=== PATIENT | female | born 1960 | race Caucasian/White ===

== ENCOUNTER 2018-08-30 11:12 | Outpatient (CLI) | payer OTHER, SELFPAY ==
[2018-08-30 13:04] LABS: Abs Immature Grans 0.01 k/cumm (0.0-0.09); Absolute Basophil Count 0.04 k/cumm (0.0-0.2); Absolute Eosinophil Count 0.22 k/cumm (0.0-0.7); Absolute Lymphocyte Count 2.22 k/cumm (1.2-3.4); Absolute Monocyte Count 0.72 k/cumm (0.11-0.7); Absolute Neutrophil Count 4.26 k/cumm (1.2-6.7); Basophils % 0.5; Eosinophils % 2.9; HCT 42.5 % (36.0-46.0); HGB 13.9 g/dL (12.0-15.5); Immature Grans % 0.1; Lymphocytes % 29.7; Mean Corp. HGB Concentration 32.7 g/dL (32.0-36.0); Mean Corpuscular Volume 91.8 fL (80-95); Mean Platelet Volume 11.2 fL (8.0-11.0); Monocytes % 9.6; Neutrophils % 57.2; Platelet Count 299 x1000/uL (130-400); RBC 4.63 m/cumm (4.00-5.20); RBC Distribution Width 12.8 % (11.7-14.6); White Blood Cell Count 7.47 k/cumm (4.4-10.8)
[2018-08-30 13:17] LABS: ALT 25 U/L (12-78); AST 18 U/L (15-37); Albumin 4.3 g/dL (3.4-5.0); Alkaline Phosphatase 78 U/L (46-116); Anion Gap 7.7 mmol/L (3-11); BUN 17 mg/dL (7-18); Bilirubin, Total 0.4 mg/dL (0.2-1.0); CO2 32.3 mmol/L (21.0-32.0); CREATININE 0.77 mg/dL (0.55-1.02); Calcium 9.4 mg/dL (8.5-10.1); Chloride 103 mmol/L (98-107); Cholesterol 296 mg/dL (50-200); Glucose 94 mg/dL (70-100); HDL Cholesterol 102 mg/dL (40-60); LDL CHOLESTEROL 180 mg/dL (<100); Magnesium 2.1 mg/dL (1.8-2.4); Sodium 143 mmol/L (136-145); TSH 1.84 uIU/mL (0.358-3.74); Total Protein 7.4 g/dL (6.4-8.2); Triglyceride 34 mg/dL (30-150)
[2018-08-30 13:33] LABS: FREE T4 1.04 ng/dL (0.76-1.46)
[2018-09-05 12:42] LABS: Specimen WB Whole Blood
== END 2018-08-30 11:32 ==
PROVIDERS: PCP Nurse Practitioner Family; Visit Provider Nurse Practitioner Family
DX: Z00.00 Encounter for general adult medical examination without abnormal findings (principal); R55 Syncope and collapse; Z83.49 Family history of other endocrine, nutritional and metabolic diseases
CPT/HCPCS: 36415; 80053; 80061; 83721; 81256; 83735; 84439; 84443; 85025

== ENCOUNTER 2018-09-13 02:50 | Outpatient (CLI) | payer OTHER, SELFPAY ==
--- NOTE | 2018-10-04 10:37 | ZIOP_ITS ---
ZIO PATCH REPORT DATE OF DICTATION October 04, 2018 INDICATION Syncope. ANALYSIS TIME 11 days and 12 hours. FINDINGS Predominant underlying rhythm is sinus rhythm. Average heart rate when in sinus 72 beats per minute. Minimum heart rate 44 and max heart rate 153 beats per minute when in sinus rhythm. 5 short bursts of SVT. The longest lasting 15 beats. Otherwise rare isolated atrial ectopy. Rare isolated ventricular ectopy. No nonsustained VT. No significant pauses or nusrat arrhythmias. 24 patient triggered events all correspond to sinus rhythm and occasionally to PACs. No diary entries. Reji Noonan M.D. FARTUN/afua T-10/04/2018
== END 2018-09-13 03:10 ==
PROVIDERS: PCP Nurse Practitioner Family; Visit Provider Nurse Practitioner Family
DX: R55 Syncope and collapse (principal); I47.1 Supraventricular tachycardia
CPT/HCPCS: 93225

== ENCOUNTER 2019-01-06 08:25 | Outpatient (CLI) | payer OTHER, SELFPAY ==
[2019-01-06 11:35] LABS: ALT 30 U/L (12-78); AST 22 U/L (15-37); Albumin 4.3 g/dL (3.4-5.0); Alkaline Phosphatase 79 U/L (46-116); Anion Gap 9.2 mmol/L (3-11); BUN 19 mg/dL (7-18); Bilirubin, Total 0.4 mg/dL (0.2-1.0); CO2 31.8 mmol/L (21.0-32.0); CREATININE 0.72 mg/dL (0.55-1.02); Calcium 9.7 mg/dL (8.5-10.1); Chloride 100 mmol/L (98-107); Cholesterol 212 mg/dL (50-200); Glucose 98 mg/dL (70-100); HDL Cholesterol 100 mg/dL (40-60); LDL CHOLESTEROL 92 mg/dL (<100); Potassium 4.6 mmol/L (3.5-5.1); Sodium 141 mmol/L (136-145); Total Protein 7.5 g/dL (6.4-8.2); Triglyceride 36 mg/dL (30-150)
== END 2019-01-06 08:45 ==
PROVIDERS: PCP Nurse Practitioner Family; Visit Provider Nurse Practitioner Family
DX: I10 Essential (primary) hypertension (principal); E78.5 Hyperlipidemia, unspecified
CPT/HCPCS: 36415; 80053; 80061; 83721

== ENCOUNTER 2020-04-22 22:13 | Outpatient (REF) | payer OTHER, SELFPAY ==
[2020-04-22 19:37] LABS: Anion Gap 7.4 mmol/L (3-11); BUN 16 mg/dL (7-18); CO2 32.6 mmol/L (21.0-32.0); CREATININE 1.43 mg/dL (0.55-1.02); Calcium 9.6 mg/dL (8.5-10.1); Calculated LDL 87 mg/dL (<100); Chloride 101 mmol/L (98-107); Cholesterol 197 mg/dL (<200); Estimated GFR 37.56 (mL/min/1.73m2); Glucose 75 mg/dL (74-106); HDL Cholesterol 103 mg/dL (40-60); Sodium 141 mmol/L (136-145); Triglyceride 39 mg/dL (<150)
== END 2020-04-22 22:33 ==
LOC: LBN 22:13
PROVIDERS: PCP Nurse Practitioner Family; Visit Provider Nurse Practitioner Family
DX: E78.5 Hyperlipidemia, unspecified (principal)
CPT/HCPCS: 80048; 80061; 83036

== ENCOUNTER 2020-05-13 04:32 | Outpatient (CLI) | payer OTHER, SELFPAY ==
[2020-05-13 12:20] LABS: Bilirubin Negative (Negative); Blood Negative (Negative); Clarity Clear (Clear); Glucose Negative (Negative); Ketones Negative (Negative); Leukocyte Esterase Negative (Negative); Nitrite Negative (Negative); Specific Gravity 1.025 (1.005-1.025); Urobilinogen 0.2 EU/dL (Up TO 0.2); pH 7.5 (5-8)
[2020-05-13 12:59] LABS: Anion Gap 6.9 mmol/L (3-11); BUN 18 mg/dL (7-18); CO2 31.1 mmol/L (21.0-32.0); CREATININE 0.69 mg/dL (0.55-1.02); Chloride 105 mmol/L (98-107); Glucose 93 mg/dL (74-106); Sodium 143 mmol/L (136-145)
== END 2020-05-13 04:52 ==
PROVIDERS: PCP Nurse Practitioner Family; Visit Provider Nurse Practitioner Family
DX: N28.9 Disorder of kidney and ureter, unspecified (principal)
CPT/HCPCS: 36415; 80048; 81003

== ENCOUNTER 2020-06-24 05:58 | Day surgery (SDC) | payer OTHER, SELFPAY ==
[2020-06-24 06:19] VITALS: BP 123/73; PULSE 63; RESP 16; TEMP 36.6; O2SAT 96
[2020-06-24] MEDS: Lactated Ringers 1,000 ML 80 ML IV (06:53)
[2020-06-24 08:39] VITALS: BP 138/74; PULSE 57; RESP 18; TEMP 36.1; O2SAT 100
--- NOTE | 2020-06-24 08:39 | W.PM.DSUDISC ---
Discharge Plan Disposition Patient Disposition: HOME Condition: Good Discharge Details Reason For Visit: colon can screen Attending Provider: Nasrin Liu Primary Care Provider: Dixie Smith Home Meds and New Rx's Prescriptions: Continued hydrochlorothiazide 12.5 mg tablet 12.5 mg PO DAILY Qty: 90 RF: 4 rosuvastatin 5 mg tablet 5 mg PO DAILY Qty: 90 RF: 4 fluticasone propion-salmeterol [Advair Diskus] 250-50 mcg/dose blister with device 1 inh Inhalation DAILY Qty: 180 RF: 6 albuterol sulfate [Proventil HFA] 90 mcg/actuation HFA aerosol inhaler 2 puff Inhalation Q6H PRN (Reason: shortness of breath or wheezing) Qty: 18 RF: 6 valacyclovir [Valtrex] 1 gram tablet 2,000 mg PO BID PRN (Reason: cold sores) Qty: 30 RF: 4 Discontinued polyethylene glycol 3350 17 gram/dose powder 238 g PO ONCE Qty: 238 RF: 0 bisacodyl [Dulcolax (bisacodyl)] 5 mg tablet,delayed release (DR/EC) 5 mg PO ONCE Qty: 4 RF: 0 Discharge Instructions Additional Instructions: Findings: normal colon Follow up: repeat in 5 yrs time Please call if you develop: fevers >101.5 Nausea or Vomiting Abdominal pain that is not transient DAY SURGERY UNIT POST COLONOSCOPY INSTRUCTIONS 1. Because there will be medication in your system for the next 24 hours, you may feel a little sleepy. Your coordination will be affected. Therefore: a. Do not drive or operate dangerous equipment for 24 hours. b. Do not drink alcohol beverages for 24 hours (not even beer). c. Plan to go home and rest for the day. 2. Generally there are no restrictions on your activity after a day or so has gone by, but you may feel a bit fatigued for a few days. 3 After you arrive home you may have a light meal and return to a normal diet as you can tolerate it without feeling sick to your stomach. 4. After surgery, you may feel pain or discomfort. This should be only transient, but if it persists please contact your doctor. 5. If there are any questions regarding the findings of your procedure, please feel free to contact your doctor. 6. If you are unable to contact your doctor with a problem, contact the hospital at [phone]. 6. Continue all your regular medications unless directed otherwise. I understand the above instructions and have no questions. Signature of Patient or Responsible Adult Escort Date/Time Name of Responsible Adult Escort Signature of Nurse Date/Time Activity:: no lifting over 20# or strenuous activity x 24 hrs Diet:: sm light meals x 24 hrs Discharge Orders Discharge Orders: Discharge Order (Routine); Ordered 06/24/20 Ordered By: Nasrin Liu DS: Diagnosis Discharge Diagnosis (1) Colon cancer screening: Status: Acute
--- NOTE | 2020-06-24 08:42 | COLE_ITS ---
Date of service: 06/24/20 Time of Service: 08:43 Colonoscopy Report Date of procedure: 06/24/20 Pre-op diagnosis general: family Hx Post-op diagnosis procedure note: same Procedure: CE Surgeon: Nasrin Liu Anesthesia proc note operative: MAC Estimated blood loss (mL): 0 Pathology: none sent Complications: None Disposition: same day Prep: Miralax/Dulcolax Retraction Time: 10 mins Procedure Description: After informed consent was obtained the patient was taken to the procedure room and placed in a left decubitous position. Monitors were applied and a time out was done. The patients name, date of , procedure, allergies to medications and metal in their body was reviewed. The patient was then sedated. Once sedated and comfortable a rectal exam was done. External exam was normal. Internal exam revealed a normal sphincter tone and no palpable masses. The scope was then introduced and retrofelexed. no internal hemorrhoids were identified. The scope was then advanced to the cecum w/out difficulty. The TI and appendiceal orifice were identified. The prep was good. The scope was then slowly retracted over 10 minutes back into the rectum. No avm's /polyp's/diverticula. The scope was removed and the patient was woken up and taken back to Same day surgery in stable condition. The patient tolerated the procedure well and there were no immediate c omplications. Follow up: The patient should follow up in 5 years unless they develop changes in bowel habits or other new gastrointestinal complaints.
== END 2020-06-24 09:26 | disposition home or self-care (01) ==
PROVIDERS: PCP Nurse Practitioner Family; Visit Provider Surgery
PROC: 0DJD8ZZ Inspection of Lower Intestinal Tract, Via Natural or Artificial Opening Endoscopic (ICD-10-PCS; CPT 45378; principal; 2020-06-24 07:30)
DX: Z12.11 Encounter for screening for malignant neoplasm of colon (principal); Z80.0 Family history of malignant neoplasm of digestive organs; I10 Essential (primary) hypertension; E78.5 Hyperlipidemia, unspecified
CPT/HCPCS: 45378; J2001

== ENCOUNTER 2020-10-20 06:08 | Inpatient (IN) | payer OTHER, SELFPAY ==
[2020-10-20] VITALS (12 sets, daily range): BP systolic 116–155; BP diastolic 62–81; PULSE 54–77; RESP 12–24; TEMP 36.1–37; O2SAT 94–100
--- NOTE | 2020-10-20 06:00 | DI.RAD_ITS ---
EXAM: XR HIP LT COMPLETE AP PELVIS INDICATION: fall, pain over greater trochanter. COMPARISON: No exams were available for comparison TECHNIQUE: 2D digital imaging was performed. FINDINGS: There is a fracture in the subcapital region of the left femur which shows mild angulation but no si gnificant displacement. No additional fractures are seen. Hip joint spaces are well maintained. Th e SI joints are unremarkable. IMPRESSION: Subcapital fracture of the left femoral neck. DATA REPOSITORY: RADIATION DOSE DELIVERED:
--- NOTE | 2020-10-20 06:00 | DI.CT_ITS ---
EXAM: CT HEAD WO CLINICAL HISTORY: fall, syncope, hit head. TECHNIQUE: Imaging Protocol: Axial computed tomography images with coronal and sagittal reformatted images were created and reviewed COMPARISON: No exams were available for comparison FINDINGS: Ventricles and Extra axial spaces: Normal in size and morphology for the patient's age. Hemorrhage: None. Cerebral parenchyma: Normal. Midline shift: None. Brainstem/Cerebellum: Normal. Calvarium: Normal. Visualized Paranasal sinuses/Mastoids: Clear. Soft Tissues: Unremarkable. IMPRESSION: No acute intracranial process. RADIATION DOSE DELIVERED: 620.35mGy.cm Total DLP DATA REPOSITORY: All CT scans at this facility are submitted to the National Radiology Data Registry (NRDR) Dose Index Registry (DIR) with the [employer] (ACR). RADIATION OPTIMIZATION: All CT scans at this facility use at least one of these dose optimization te chniques: automated exposure control; mA and/or kV adjustment per patient size (includes targeted exa ms where dose is matched to clinical indication); or iterative reconstruction.
--- NOTE | 2020-10-20 06:00 | RT.EKG_ITS ---
APPROVED REPORT Exam: Resting ECG Patient Location: E HR:57 bpm ECG Measurements Heart Rate 57 AXIS MS 168 P 64 QRSd 84 QRS 61 QT 486 T 59 QTc 473 Conclusion Sinus bradycardia...rate< 60 Physician: Rate 57, sinus bradycardia, QRS 84, AC 473, no significant ST elevation or depression, no evidence of STEMI. No evidence of significant abnormality.
--- NOTE | 2020-10-20 06:43 | DI.VRAD_ITS ---
PROCEDURE INFORMATION: Exam: CT Head Without Contrast Exam date and time: 10/20/2020 6:24 AM Age: 60 years old Clinical indication: Injury or trauma; Work related; Blunt trauma (contusions or hematomas); With loss of consciousness; Not specified; Injury date: 10/20/20; Injury details: Fall, syncope, hit head, loc after getting up TECHNIQUE: Imaging protocol: Computed tomography of the head without contrast. COMPARISON: No relevant prior studies available. FINDINGS: Brain: Normal. No hemorrhage. Unremarkable white matter. No mass effect. Cerebral ventricles: No ventriculomegaly. Bones/joints: Unremarkable. No acute fracture. Paranasal sinuses: Visualized sinuses are unremarkable. No fluid levels. Mastoid air cells: Visualized mastoid air cells are well aerated. Soft tissues: Unremarkable. IMPRESSION: No acute intracranial hemorrhage noted Dictated and Authenticated by: Tristin Young MD. Ordering:RIO Retana MD
--- NOTE | 2020-10-20 06:47 | DI.VRAD_ITS ---
PROCEDURE INFORMATION: Exam: XR Left Hip with Pelvis when Performed Exam date and time: 10/20/2020 6:34 AM Age: 60 years old Clinical indication: Injury or trauma; Work related; Blunt trauma (contusions or hematomas); Left; Hip; Injury date: 10/20/20; Injury details: Fall, pain over greater trochanter TECHNIQUE: Imaging protocol: XR Left hip with pelvis when performed. Views: 2 or 3 views. COMPARISON: No relevant prior studies available. FINDINGS: Subcapital left femoral neck fracture with mild impaction. No dislocation. The pubic rami/pubic symphysis and visualized sacrum are intact. Moderate to large stool in the visualized colon Calcific density adjacent to the greater trochanter on the right IMPRESSION: Subcapital left femoral neck fracture as described Question constipation Dictated and Authenticated by: Tristin Young MD. Ordering:RIO Retana MD
--- NOTE | 2020-10-20 06:54 | ED.GENADUL_ITS ---
Discharge Plan Disposition Patient Disposition: [facility] INPATIENT Condition: Stable Discharge Details Clinical Impression: Closed fracture of left hip, Fall Primary Care Provider: Dixie Smith ED Provider: Mazin Bey Home Meds and New Rx's Prescriptions: No Action hydrochlorothiazide 12.5 mg tablet 12.5 mg PO DAILY Qty: 90 RF: 4 rosuvastatin 5 mg tablet 5 mg PO DAILY Qty: 90 RF: 4 fluticasone propion-salmeterol [Advair Diskus] 250-50 mcg/dose blister with device 1 inh Inhalation DAILY Qty: 180 RF: 6 albuterol sulfate [Proventil HFA] 90 mcg/actuation HFA aerosol inhaler 2 puff Inhalation Q6H PRN (Reason: shortness of breath or wheezing) Qty: 18 RF: 6 Medical Decision Making Pleasant 60-year-old female presents today for evaluation of left hip pain, fall and syncope. 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 She recalls the entire event. When she was helped up by staff she got extremely lightheaded and bradycardic and hypotensive had a syncopal episode with slight jerking movements. She came to moments afterwards, felt fine aside from mild headache and mild left hip pain. Difficulty and pain with ambulation was present. She was brought by EMS for further evaluation. Aside for pain in her hip, she currently denies any pain in her head or neck. She denies any numbness or tingling or visual deficits. Does not want any medications for pain. No other complaints this time. She is not on any blood thinners. Exam demonstrates pain and tenderness over the left greater trochanter of the hip, pain with logroll of the left lower extremity. No neurologic deficits. CT head is negative for acute process per virtual radiology, EKG unremarkable. X-ray shows subcapital left femoral neck fracture, case was discussed with Dr. Maldonado, he does request a hip CAT scan, discussed this with the patient. We will get CT scan, and plan for potential surgery. Patient has not eaten anything today. 7:[address] Maldonado seen and assessed the patient. Patient will be brought to the OR for further definitive surgical management. I will place admission orders on his behalf. I have extensively reviewed the treatment plan with the patient. I have addressed all patient concerns at this time. I have also discussed the plan with the admitting physician and they agree with the current assessment and plan and have agreed to assume responsibility for the patient. All parties demonstrate verbal understanding and agreement with our assessment and plan at this time. The documentation in this chart was dictated using [employer] dictation software. Please excuse any dictation errors. EKG 6: 39 Rate 57, sinus bradycardia, QRS 84, QTC 473, no significant ST elevation or depression, no evidence of STEMI. No evidence of significant abnormality. FINDINGS: Brain: Normal. No hemorrhage. Unremarkable white matter. No mass effect. Cerebral ventricles: No ventriculomegaly. Bones/joints: Unremarkable. No acute fracture. Paranasal sinuses: Visualized sinuses are unremarkable. No fluid levels. Mastoid air cells: Visualized mastoid air cells are well aerated. Soft tissues: Unremarkable. IMPRESSION: No acute intracranial hemorrhage noted Thank you for allowing us to participate in the care of your patient. Dictated and Authenticated by: Tristin Young MD 10/20/2020 6:43 AM Eastern Time ([place] & [place]) FINDINGS: Subcapital left femoral neck fracture with mild impaction. No dislocation. The pubic rami/pubic symphysis and visualized sacrum are intact. Moderate to large stool in the visualized colon Calcific density adjacent to the greater trochanter on the right IMPRESSION: Subcapital left femoral neck fracture as described Question constipation Thank you for allowing us to participate in the care of your patient. Dictated and Authenticated by: Tristin Young MD 10/20/2020 6:46 AM Eastern Time ([place] & [place]) FINDINGS: Bones/joints: Subcapital left hip fracture with impaction at the superior aspect of the fracture. Soft tissues: Normal. IMPRESSION: Subcapital left hip fracture with impaction at the superior aspect of the fracture. Thank you for allowing us to participate in the care of your patient. Dictated and Authenticated by: Dariel Cerrato MD 10/20/2020 7:30 AM Eastern Time ([place] & [place]) HPI General Date/Time Provider Initiated Documentation: 10/20/20 06:11 . HPI Narrative: Pleasant 60-year-old female presents today for evaluation of left hip pain, fall and syncope. 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 She recalls the entire event. When she was helped up by staff she got extremely lightheaded and bradycardic and hypotensive had a syncopal episode with slight jerking movements. She came to moments afterwards, felt fine aside from mild headache and mild left hip pain. Difficulty and pain with ambulation was present. She was brought by EMS for further evaluation. Aside for pain in her hip, she currently denies any pain in her head or neck. She denies any numbness or tingling or visual deficits. Does not want any medications for pain. No other complaints this time. She is not on any blood thinners. Related Data Home Medications Medication Instructions Recorded Confirmed hydrochlorothiazide 12.5 mg tablet 12.5 mg PO DAILY #90 tab 09/29/19 10/20/20 rosuvastatin 5 mg tablet 5 mg PO DAILY #90 tab 09/29/19 10/20/20 fluticasone 250 mcg-salmeterol 50 1 inh INHALATION DAILY #180 each 11/28/19 10/20/20 mcg/dose blistr powdr for inhalation albuterol sulfate 90 mcg/actuation 2 puff INHALATION Q6H PRN #18 gm 12/17/19 10/20/20 aerosol inhaler Previous Rx's Medication Instructions Recorded hydrochlorothiazide 12.5 mg tablet 12.5 mg PO DAILY #90 tab 09/29/19 rosuvastatin 5 mg tablet 5 mg PO DAILY #90 tab 09/29/19 fluticasone 250 mcg-salmeterol 50 1 inh INHALATION DAILY #180 each 11/28/19 mcg/dose blistr powdr for inhalation albuterol sulfate 90 mcg/actuation 2 puff INHALATION Q6H PRN #18 gm 12/17/19 aerosol inhaler Allergies Allergy/AdvReac Type Severity Reaction Status Date / Time Iodinated Contrast Media Allergy Unknown Verified 10/13/20 10:20 [Iodinated Contrast Media - Oral and] iodine Allergy Unknown Verified 10/13/20 10:20 Sulfa (Sulfonamide Allergy Unknown Verified 10/13/20 10:20 Antibiotics) lisinopril AdvReac Intermediate cough Verified 10/13/20 10:20 General Stated Complaint: Dizzy/Sync URI: 3 Review of Systems All systems reviewed & are unremarkable except as noted in HPI and below PFSH Medical History Colon cancer screening Essential hypertension Herpes simplex labialis Hyperlipidemia Mild persistent asthma Paroxysmal SVT (supraventricular tachycardia) F/U with PCP 04/2020 Raynaud phenomenon Syncopal episodes ECHO, head CT at [facility]2018 negative. Zio patch with 5 short bursts of SVT Surgical History History of section S/P tonsillectomy and adenoidectomy Status post bilateral breast reduction (~1980) Status post cervical polyp removal (~2015) Family History Mother Colon cancer Hypothyroidism Raynaud phenomenon Father , at 52 of bile duct cancer Essential hypertension Bile duct cancer Brother Essential hypertension Son No problems noted. Daughter No problems noted. Maternal Grandfather , at 75 Alzheimer's disease Heart disease Maternal Grandmother , at 82 of complications from hemochromatosis Hemochromatosis Paternal Grandfather , at 82 [facility] in [facility] Heart disease Myocardial infarction Cancer Unknown type Paternal Grandmother , at 49 L[facility] in [facility] Throat cancer Lung cancer Social History Smoking/Tobacco Use Status: Never Smoking risk assessment performed?: Yes Alcohol Intake: current Alcohol Intake frequency: a few times a month Alcohol type: beer and wine Drug use: Never Substance use type: does not use Current gender identity: female Duration: 30-45 minutes/day Frequency: 3-4 times per week Karol/Mormonism: Oriental [employer] Special karol needs: No Do you feel safe at home: Yes Do you feel safe in your relationship?: Yes Female Reproductive History Menstrual Menopause type: natural Date of menopause: 09/10/10 History History 2 Para Hx # Term Pregnancies Multiple births Hx # Pregnancies Ectopic pregnancies AB induced Hx Number of Living Children 1 AB spontaneous Exam Narrative Exam Narrative: 1.Const: Well-nourished, Well-developed, appearing stated age 2.Eyes: PERRL, no conjunctival injection, and symmetrical lids. 3.ENT: Atraumatic external nose and ears. Moist MM. Neck: Symmetric, trachea midline, No thyromegaly. There is no evidence of raccoon eyes, witt sign, CSF rhinorrhea, mastoid tenderness, cranial crepitus, hemotympanum, exophthalmos, or hyphema. Patient demonstrates intact dentition with no signs of tooth avulsion or fracture, no signs of jaw deformity, no evidence of a LeFort's fracture, with an intact palate, nose and orbital region. There is no evidence of a nasal septal hematoma. No proptosis. Jaw closes symmetrically. Airway is clear. 4.CVS: +S1/S2, No murmurs or gallops. Peripheral pulses 2+ and equal in all extremities. Brisk capillary refill in all extremities. 5.RESP: Unlabored respiratory effort. Clear to auscultation bilaterally. No wheezes rales or rhonchi 6.GI: Soft, Nontender/Nondistended, No hepatosplenomegaly. No guarding or rebound. 7.MSK: Normocephalic, Extremities w/o deformity. No cyanosis or clubbing, mild pain with palpation of the left greater trochanter, pain with logroll of the left lower extremity. Decreased strength with flexion of the hip secondary to pain. Pain in the left hip with ambulation. Sensation intact throughout No midline tenderness to palpation over the CTLS spine. Normal ROM in flexion, extension, side bend, and rotation. Patient has +5 out of 5 strength in the lower extremities in dorsiflexion and plantarflexion, knee flexion and extension, hip flexion and extension. Normal strength for dorsiflexion and plantar flexion of the great toe bilaterally. There is +2 over 2 dorsalis pedis pulses bilaterally. There is normal sensation to the skin with light touch at the foot, knee, and hip. Normal saddle sensation. Good sensation over the deep sural nerve area bilaterally. Rectal exam deferred. Reflexes are +2 over 4 in the patellar reflex bilaterally. +5 out of 5 strength in the medial, ulnar, radial nerve distribution bilaterally in the hands as well as intact light touch sensation to these dermatomes on the hands 8.Skin: Warm, Dry. No rashes or lesions. 9.Neuro: leather stretcher II-XII grossly intact. Sensation grossly intact, no focal neurologic deficits. All 6 cardinal planes of vision are fully intact. No evidence of rotatory or vertical nystagmus. The patient demonstrated a normal [id number], good dexterity. There was no evidence of dysdiadochokinesia. There was no wide-based gait, but she does have a painful limp secondary to left hip pain. [id number]-jp-[id number] testing was normal aside for pain in the left hip with movement. Sensation was intact bilaterally as well as muscle strength bilaterally for all extremities except for mild weakness secondary to pain with flexion of the left hip. Patient was able to verbalize butter cup with no slurring, or miss pronunciation. 10.Psych: (AAO) x3. Appropriate mood and affect Course Vital Signs Vital signs: Vital Signs Temperature 36.1 C L 10/20/20 06:08 Pulse 54 L 10/20/20 06:08 Respiratory Rate 16 10/20/20 06:08 Blood Pressure 123/68 10/20/20 06:08 Pulse Oximetry 97 10/20/20 06:08 Temperature 36.1 C L 10/20/20 06:08 Temperature Source Skin 10/20/20 06:08 Pulse 54 L 10/20/20 06:08 Respiratory Rate 16 10/20/20 06:33 Respiratory Effort Non-Labored 10/20/20 06:33 Respiratory Depth Normal 10/20/20 06:33 Respiratory Pattern Normal 10/20/20 06:33 Blood Pressure 123/68 10/20/20 06:08 Blood Pressure Position Sitting 10/20/20 06:08 Pulse Oximetry 97 10/20/20 06:08 Oxygen Delivery Method Room Air 10/20/20 06:08 Oxygen Flow Rate 0 10/20/20 06:08
--- NOTE | 2020-10-20 07:20 | DI.CT_ITS ---
EXAM: CT LOWER EXTREMITY LT WO CLINICAL HISTORY: left hip fracture. TECHNIQUE: Imaging Protocol: Axial computed tomography images with coronal and sagittal reformatted images were created and reviewed. CONTRAST MATERIAL: Noncontrast COMPARISON: CR,XR XR HIP LT COMPLETE AP PELVIS from 10/20/2020 FINDINGS: As seen on plain films, there is a subcapital fracture of the left femur. There is mild angulation a nd impaction at the superior portion of the fracture. There is also small comminuted fragment at the superior aspect of the fracture. No additional fractures are seen. The hip joint space is well soy ntained. The visualized portions of the pelvis are unremarkable. IMPRESSION: Mildly impacted subcapital fracture of the left femoral neck. RADIATION DOSE DELIVERED: 236.79mGy.cm Total DLP DATA REPOSITORY: All CT scans at this facility are submitted to the National Radiology Data Registry (NRDR) Dose Index Registry (DIR) with the [employer] (ACR). RADIATION OPTIMIZATION: All CT scans at this facility use at least one of these dose optimization te chniques: automated exposure control; mA and/or kV adjustment per patient size (includes targeted exa ms where dose is matched to clinical indication); or iterative reconstruction.
--- NOTE | 2020-10-20 07:30 | DI.VRAD_ITS ---
PROCEDURE INFORMATION: Exam: CT Left Lower Extremity Without Contrast, Hip Exam date and time: 10/20/2020 6:49 AM Age: 60 years old Clinical indication: Injury or trauma; Fall; Sprain or strain; Patient HX: Left hip FX TECHNIQUE: Imaging protocol: CT of the Left lower extremity without contrast was performed. Exam focused on the hip. Radiation optimization: All CT scans at this facility use at least one of these dose optimization techniques: automated exposure control; mA and/or kV adjustment per patient size (includes targeted exams where dose is matched to clinical indication); or iterative reconstruction. COMPARISON: CR XR HIP LT COMPLETE AP PELVIS 10/20/2020 6:29 AM FINDINGS: Bones/joints: Subcapital left hip fracture with impaction at the superior aspect of the fracture. Soft tissues: Normal. IMPRESSION: Subcapital left hip fracture with impaction at the superior aspect of the fracture. Dictated and Authenticated by: Dariel Cerrato MD. Ordering:RIO Retana MD
[2020-10-20 07:49] LABS: Source Nasopharynx
[2020-10-20] MEDS: Normal Saline Flush 10 ML SYR IVP ×4 (08:00→23:44)
[2020-10-20 08:06] LABS: Abs Immature Grans 0.05 10^3/uL (0.0-0.06); Absolute Basophil Count 0.04 10^3/uL (0.0-0.2); Absolute Lymphocyte Count 1.87 10^3/uL (1.2-3.4); Absolute Monocyte Count 0.71 10^3/uL (0.1-0.8); Absolute Neutrophil Count 6.33 10^3/uL (1.2-6.7); Basophils % 0.4; Eosinophils % 1.1; HCT 41.3 % (36.0-46.0); HGB 13.7 g/dL (11.2-15.7); Immature Grans % 0.5; Lymphocytes % 20.5; MCH 30.2 pg (27.0-33.0); MCHC 33.2 % (32.0-36.0); MCV 91.2 fL (80-95); Monocytes % 7.8; Neutrophils % 69.7; Nucleated RBC 0 %; Platelet Count 270 10^3/uL (130-400); RBC 4.53 10^6/uL (3.93-5.22); RDW 11.9 % (11.7-14.6); RDW-SD 40.4 fL
[2020-10-20 08:18] LABS: ALT 84 U/L (14-59); AST 60 U/L (15-37); Alkaline Phosphatase 69 U/L (46-116); Anion Gap 6.7 mmol/L (3-11); BUN 24 mg/dL (7-18); Bilirubin, Total 0.5 mg/dL (0.2-1.0); CO2 31.3 mmol/L (21.0-32.0); CREATININE 0.7 mg/dL (0.55-1.02); Calcium 9.2 mg/dL (8.5-10.1); Chloride 100 mmol/L (98-107); Glucose 103 mg/dL (74-106); Potassium 3.6 mmol/L (3.5-5.1); Sodium 138 mmol/L (136-145); Total Protein 7.8 g/dL (6.4-8.2)
[2020-10-20] MEDS: Lactated Ringers 1,000 ML 75 ML IV (08:20)
[2020-10-20 08:21] LABS: PTT Activated 21.7 sec (21.0-27.5)
[2020-10-20] MEDS: Acetaminophen 500 MG TAB 1000 MG PO ×2 (08:21→17:52)
[2020-10-20 08:32] LABS: COVID-19 PCR Negative (Negative); Influenza A PCR Negative (Negative); Influenza B PCR Negative (Negative); RSV PCR Negative (Negative)
--- NOTE | 2020-10-20 09:56 | HPE_ITS ---
Date of service: 10/20/20 Time of Service: 09:56 Assessment and Plan Assessment and plan (1) Fracture of femoral neck, left, closed: Status: Acute Assessment and plan: Sara is a 60-year-old active female who had a fall at work on the left hip. She suffered a Garden 1 femoral neck fracture. She wa s able to walk on this briefly and the lateral and CT scan do not show any significant posterior comminution or posterior angulation. Given these factors, and her young age without any premorbid hip pain nor loss of joint space, I think screw fixation of this fracture would be the most reasonable next step. I did discuss with her that there is a moved to do more hip replacements immediately as they have better long-term outcomes. However, this hip fracture pattern is stable and given no premorbid pain and a significant amount of cartilage still present in the hip, I think the main sense to try to preserve the hip. There is an approximate 10% risk of having avascular necrosis which unfortunately will not show up till sometime later. However, that time we could move forward with a hip replacement. Expectation is that she will have good results with screw fixation but it must be fixed to prevent any movement of the fracture site and preserve what her vascular supply still present. After reviewing these treatment options, she elected to proceed with the screw fixation of her left femoral neck fracture. I reviewed the details of the surgery. I discussed the risk to include bleeding, infection, pain, stiffness, malunion, nonunion, hardware prominence, hardware failure, avascular necrosis, worsening arthritis, hip impingement, blood clot. Despite these risk, she elects to proceed. I will admit her to the hospital for surgery later this afternoon. She will remain NPO. Qualifiers: Encounter type: initial encounter Qualified Code(s): S72.002A - Fr acture of unspecified part of neck of left femur, initial encounter for closed fracture History of Present Illness History of Present Illness Chief Complaint: Left Hip Pain Consults Consult date: 10/20/20 Requesting physician: Mazin Bey Narrative: Sara is a 60-year-old who was at work this morning. She tripped over a door jam and stumbled onto her left side. She had immediate pain. When she went to stand up lightheaded and per report she had episode of syncope which was followed by some jerking motions. However, she denies any lightheadedness prior to fall. She denies any palpitations or chest pain. At the time she was noted to be hypertensive with some bradycardia. She only has a history significant for hypertension and asthma. She is very active and denies any prefall left hip p ain. She skis regularly in addition other physical activities. She denies any numbness or tingling. She was able to stand on this leg and walk some steps although with pain and significant distress. She denies any head trauma. Review of Systems All systems reviewed & are unremarkable except as noted in HPI and below [facility] Medical History Colon cancer screening Essential hypertension Herpes simplex labialis Hyperlipidemia Mild persistent asthma Paroxysmal SVT (supraventricular tachycardia) F/U with PCP 04/2020 Raynaud phenomenon Syncopal episodes ECHO, head CT at [facility] [place] negative. Zio patch with 5 short bursts of SVT Surgical History History of section S/P tonsillectomy and adenoidectomy Status post bilateral breast reduction (~1980) Status post cervical polyp removal (~2015) Family History Mother Colon cancer Hypothyroidism Raynaud phenomenon Father , at 52 of bile duct cancer Essential hypertension Bile duct cancer Brother Essential hypertension Son No problems noted. Daughter No problems noted. Maternal Grandfather , at 75 Alzheimer's disease Heart disease Maternal Grandmother , at 82 of complications from hemochromatosis Hemochromatosis Paternal Grandfather , at 82 Lived in [facility] Heart disease Myocardial infarction Cancer Unknown type Paternal Grandmother , at 49 Lived in [facility] Throat cancer Lung cancer Social History Smoking/Tobacco Use Status: Never Smoking risk assessment performed?: Yes Alcohol Intake: current Alcohol Intake frequency: a few times a month Alcohol type: beer and wine Drug use: Never Substance use type: does not use Current gender identity: female Duration: 30-45 minutes/day Frequency: 3-4 times per week Karol/Jewish: Protestant Special karol needs: No Do you feel safe at home: Yes Do you feel safe in your relationship?: Yes Female Reproductive History Menstrual Menopause type: natural Date of menopause: 09/10/10 History History 2 Para Hx # Term Pregnancies Multiple births Hx # Pregnancies Ectopic pregnancies AB induced Hx Number of Living Children 1 AB spontaneous Meds Home Medications and Allergies Home Medications Medication Instructions Recorded Confirmed Type hydrochlorothiazide 12.5 mg tablet 12.5 mg PO DAILY #90 tab 09/29/19 10/20/20 Rx rosuvastatin 5 mg tablet 5 mg PO DAILY #90 tab 09/29/19 10/20/20 Rx fluticasone 250 mcg-salmeterol 50 1 inh INHALATION DAILY #180 each 11/28/19 10/20/20 Rx mcg/dose blistr powdr for inhalation albuterol sulfate 90 mcg/actuation 2 puff INHALATION Q6H PRN #18 gm 12/17/19 Rx aerosol inhaler Allergies Allergy/AdvReac Type Severity Reaction Status Date / Time Iodinated Contrast Media Allergy Unknown Verified 10/13/20 10:20 [Iodinated Contrast Media - Oral and] iodine Allergy Unknown Verified 10/13/20 10:20 Sulfa (Sulfonamide Allergy Unknown Verified 10/13/20 10:20 Antibiotics) lisinopril AdvReac Intermediate cough Verified 10/13/20 10:20 Exam Const General: cooperative, healthy appearing, comfortable and no acute distress Nutritional Appearance: average body habitus Orientation: alert, awake and oriented x3 HENMT Head: normal to inspection, normocephalic and atraumatic Resp Effort & Inspection: normal respiratory effort Auscultation: clear to auscultation bilaterally Cardio Rate: regular rate Rhythm: regular rhythm Extrem Other: Evaluation of the left leg shows no overlying skin changes. No abrasions or lacerations. She is resting with her hips slightly flexed. No pain along the thigh palpation of the knee, leg, foot, or ankle. Intact ankle dorsiflexion, plantarflexion, EHL, FHL. Sensation intact to light touch over the deep and superficial peroneal nerves and tibial nerve. Palpable DP and PT pulse. Results Imaging Imaging Studies: X-ray of the left hip was reviewed. This demonstrates a valgus impacted femoral neck fracture in the subcapital region. There appears to be some slight comminution. There is no notable displacement on the lateral. CT scan of the left hip was reviewed and confirms what was seen on the x-ray with a valgus impacted, femoral neck fracture. There is a small piece of cortex comminuted off the anterior aspect of the femoral neck. The posterior neck see ms to be not comminuted. There is also no significant angulation detected on the sagittal or axial views. Labs Result diagrams: 10/20/20 08:00 10/20/20 08:00 Labs: Laboratory Results - last 24 hr 10/20/20 10/20/20 10/20/20 07:40 08:00 08:00 WBC 9.10 RBC 4.53 Hgb 13.7 Hct 41.3 MCV 91.2 MCH 30.2 MCHC 33.2 RDW 11.9 Plt Count 270 MPV 10.0 Immature Gran % 0.5 Neutrophils % 69.7 Lymphocytes % 20.5 Monocytes % 7.8 Eosinophils % 1.1 Basophils % 0.4 Nucleated RBC % 0 Absolute Neutrophils 6.33 Absolute Lymphocytes 1.87 Absolute Monocytes 0.71 Absolute Eosinophils 0.10 Absolute Basophils 0.04 PT INR APTT Sodium 138 Potassium 3.6 Chloride 100 Carbon Dioxide 31.3 Anion Gap 6.7 BUN 24 H Creatinine 0.7 Estimated GFR/1.73 m2 >= 60.00 Glucose 103 Calcium 9.2 Total Bilirubin 0.5 AST 60 H ALT 84 H Alkaline Phosphatase 69 Total Protein 7.8 Albumin 4.0 COVID-19 Source Nasopharynx SARS-CoV-2 (PCR) Negative Influenza Type A (PCR) Negative Influenza Type B (PCR) Negative RSV (PCR) Negative 10/20/20 08:00 WBC RBC Hgb Hct MCV MCH MCHC RDW Plt Count MPV Immature Gran % Neutrophils % Lymphocytes % Monocytes % Eosinophils % Basophils % Nucleated RBC % Absolute Neutrophils Absolute Lymphocytes Absolute Monocytes Absolute Eosinophils Absolute Basophils PT 10.0 INR 1.0 APTT 21.7 Sodium Potassium Chloride Carbon Dioxide Anion Gap BUN Creatinine Estimated GFR/1.73 m2 Glucose Calcium Total Bilirubin AST ALT Alkaline Phosphatase Total Protein Albumin COVID-19 Source SARS-CoV-2 (PCR) Influenza Type A (PCR) Influenza Type B (PCR) RSV (PCR) Last Vital Signs Temp 36.5 C 10/20/20 09:10 Pulse 69 10/20/20 09:10 Resp 17 02/10/21 09:10 BP 147/81 H 02/10/21 09:10 Pulse Ox 96 10/20/20 09:10 COVID-19 Screening Have you, or household traveled for leisure in last 14 days?: No Had IN PERSON contact w/suspected or confirmed C-19 person: No
[2020-10-20] MEDS: Ketorolac 15 MG/ML VIAL IVP ×2 (11:07→23:43)
[2020-10-20] MEDS: Ondansetron 4 MG/2 ML VIAL IVP ×2 (11:15→23:44)
[2020-10-20] MEDS: ceFAZolin 2 GM/50 ML BAG IVPB (15:25)
[2020-10-20] MEDS: Bupivacaine LIPOSOME/PF 133 MG/10 ML VIAL IJ (15:52)
[2020-10-20] MEDS: Bupivacaine 0.25% Pres-Free 30 ML VIAL (15:52)
--- NOTE | 2020-10-20 16:10 | DI.RAD_ITS ---
EXAM: XR HIP LT IN OR CLINICAL HISTORY: FRACTURE OF LEFT FEMORAL NECK. TECHNIQUE: 2D and realtime digital imaging was performed. COMPARISON: CR,XR XR HIP LT COMPLETE AP PELVIS from 10/20/2020 CR,XR XR HIP LT COMPLETE AP PELVIS from 10/20/2020 FINDINGS: Fluoroscopy was provided in the OR for Dr. Maldonado. A hard copy image shows placement of 3 partiall y threaded screws through the femoral neck for fixation of the previously noted subcapital fracture. The alignment appears satisfactory Fluoro time: 124 seconds Please see procedure note for details. RADIATION DOSE DELIVERED:
--- NOTE | 2020-10-20 17:10 | IN_ITS ---
Date of service: 10/20/20 Time of Service: 17:10 PT Notes Visit Reasons: LEFT SUBCAPITAL FEMORAL NECK FRACTURE Physical Therapy Inpatient Initial Evaluation Date: 10/20/2020 Referring Doctor: Clive Maldonado MD PT Orders: PT CONSULT: Status post Ortho surgery. Status post left hip fracture fixation. WBAT with assist Precautions: Fall. Standard. WBAT on L LE. Patient Profile/Admitting Diagnosis: Sara is a 60-year-old female with closed left femoral neck fracture sustained from a fall and is status post ORIF with cannulated screws on postoperative day 0. PMHX: Medical History Colon cancer screening Essential hypertension Herpes simplex labialis Hyperlipidemia Mild persistent asthma Paroxysmal SVT (supraventricular tachycardia) F/U with PCP 04/2020 Raynaud phenomenon Syncopal episodes [place] [facility] [place]. Zio patch with 5 short bursts of SVT Surgical History History of section S/P tonsillectomy and adenoidectomy Status post bilateral breast reduction (~1980) Status post cervical polyp removal (~2015) Social History/Home Situation: Lives in a private home with 4 steps to enter without rails. 1 fall in the past 12 months. 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 Equipment Owned/DME: 2?3/10 in the left hip at rest, 7/10 pain in the left hip after ambulation activity. Subjective: Agreeable to PT consult. Reported increase in pain in the left hip to 7/10 after ambulation activity. Amenable to staying overnight to do more ambulation training with crutches on steps. Objective: General Observation: Supine in bed. Cold pack over left hip. Mepilex Ag over surgical incision. TEDS on both legs. Mental Status: X4 Pain: 2-3/10 at rest, 7/10 after ambulation activity in the left hip. ROM: Right Upper Extremity: Shoulder Flexion WFL. Shoulder abduction WFL. Elbow flexion WFL. Wrist flexion WFL. Opening and closing of hand WFL. Left Upper Extremity: Shoulder Flexion WFL. Shoulder abduction WFL. Elbow flexion WFL. Wrist flexion WFL. Opening and closing of hand WFL. Right Lower Extremity: Hip flexion WFL. Hip abduction WFL. Knee flexion WFL. Ankle dorsiflexion WFL. Ankle plantarflexion WFL. Left Lower Extremity: Hip flexion WFL. Hip abduction WFL. Knee flexion WFL. Ankle dorsiflexion WFL. Ankle plantarflexion WFL. Strength: Right Upper Extremity: Shoulder flexors 5/5. Shoulder abductors 5/5. Elbow flexors 5/5. Elbow extensors 5/5. Test Deck Supervisor strong. Left Upper Extremity: Shoulder flexors 5/5. Shoulder abductors 5/5. Elbow flexors 5/5. Elbow extensors 5/5. Test Deck Supervisor strong. Right Lower Extremity: Hip flexors 5/5. Hip abductors 5/5. Knee flexors 5/5. Knee extensors 5/5. Ankle dorsiflexors 5/5. Ankle plantarflexors 5/5. Left Lower Extremity:Hip flexors 4/5. Hip abductors 4/5. Knee flexors 4/5. Knee extensors 4/5. Ankle dorsiflexors 5/5. Ankle plantarflexors 5/5. Sensation: Intact as to pain and pressure on bilateral lower extremities. Bed Mobility/Transfers: Rolling independent Supine to sit independent with HOB at 30 degrees Sit to stand standby assist Stand to sit standby assist Bed to chair standby assist Chair to bed standby assist Gait: Patient ambulation of 80 feet using front wheeled walker with WBAT on the left LE requiring only contact-guard assist with report of 7/10 pain in the left hip. Heel toe step to gait pattern with decreased gil. Denies dizziness, chest pain, and headache throughout activity. Balance: Static Sitting: Normal Dynamic Sitting: Normal Static Standing: Fair Dynamic Standing: Fair Special Tests: Mobility Limitations Standardized Measure [facility] AM-PAC 6 clicks Basic Mobility Inpatient Short Form: Raw Score: 18 CMS Score: 47% deficit Informed Consent/Education: Patient instructed in purpose of PT consult and plan of care. Assessment: Sara require the use of a front wheeled walker for all mobility ADL performance during initial evaluation due to pain level and safety concerns. She will likely need further training using bilateral axillary crutches on level surfaces and on stairs to maximize independence and safety at home. Patient presents with clinical signs and symptoms consistent with current/admitting diagnoses that have resulted to mobility limitations, gait instability, generalized weakness, and impairment of motor control as demonstrated by the following impairment level findings: 1. Decreased strength to left hip major muscle groups 2. Impaired standing balance 3. Impaired activity tolerance 4. Pain in L hip Impairments are contributing to the following functional limitations: 1. Increased dependence with transfers 2. Inability to safely ambulate without assistive device and physical assistance 3. Increase completion time for mobility ADL performance 4. Increased fall risk 4. Inability to negotiate steps alone safely Patient is assessed as a [id number] moderate complexity based on the following: History: 60-year-old female with impairment level findings, functional limitations, and past medical history as indicated above Examination: Demonstrable impairment in strength, balance, and mobility level with underlying impairments and functional limitations as documented above Presentation: Evolving Decision Makin moderate complexity Goals: Goals X 1?2 more treatment sessions 1. Supine-Sit independent 2. Sit-Supine independent 3. Sit-Stand independent 4. Stand-Sit independent 5. Bed-Chair independent 6. Chair-Bed independent 7. Independent gait on level surface with use of bilateral axillary crutches for at least 300 feet without report of pain nor dyspnea 8. Independent stair negotiation with use of bilateral axillary crutches for at least 5 steps without report of pain nor dyspnea 9. Independent with home exercise program 10. Good static and dynamic standing balance/tolerance Plan of Care/Treatment Plan: 1-2x/day, 7 days/week x 1 week. Plan of care has been reviewed with the LUBRICATING MACHINE TENDER providing the service under Physical Therapy direction. Initiate Physical Therapy intervention for strengthening, bed mobility, transfers, gait, stairs, balance training, use of assistive device. DISCHARGE RECOMMENDATIONS: Home when medically cleared by orthopedic surgeon. Will need the use of front wheeled walker or bilateral axillary crutches to maximize independence at home. Outpatient physical therapy services in order to facilitate return to premorbid independent level and to vocational activities. TREATMENT CODE/TIME: 43822 x 26 minutes beginning at 17:10 PM. Thank you for the opportunity to participate in the care of this patient. Cookie Newberry PT, DPT, CLT [facility] [place], [place]
--- NOTE | 2020-10-20 17:11 | W.PM.OP ---
Date of service: 10/20/20 Time of Service: 16:11 Operative Note Operative Note DATE OF PROCEDURE: 10/20/20 PRE-OP DIAGNOSIS: Left Femoral Neck Fracture POST-OP DIAGNOSIS: same PROCEDURE: Left Cannulated Screw Fixation of Femoral Neck Fracture SURGEON: Clive Maldonado ANESTHESIA: spinal ESTIMATED BLOOD LOSS: 5 PATHOLOGY: none sent COMPLICATIONS: None Patient was transported to: PACU Patient's condition: stable Indications: Sara is a 60yo female who presented to the Emergency Department after a fall. X-rays confirmed the diagnosis of a valgus impacted subcapital femoral neck fracture. I reviewed the possible treatment options and given the fracture of the femur, I recommened operative fixation. I discussed the technical details of the surgery. I reviewed the risks such as bleeding, infection, pain, stiffness, malunion, nonunion, hardware prominence, hardware faiilure, avascular necrosis, blood clot. Despite these risks, she agreed to proceed. Findings: There was a valgus impacted femoral neck fracture without displacement on the lateral. This was transfixed with 3 7.3mm cannulated screws. Procedure Description: Sara was greeted in the preoperative area. Consent was previously reviewed and signed. Once in the operating room, spinal anesthesia was administered. Her feet were wrapped with Webrill and placed into the HANA boots. The patient was transferred to the HANA table in the supine position. Sara was positioned onto the perineal post. All bony prominences were well padded. The arm of the operative side was then placed across the chest and secured. The nonoperative leg was scissored. Preoperative x-rays were obtained and demonstrated no change. Prophylactic antibiotics, Cefazolin 2 grams, was given for prophylactic antibiotics. A timeout was performed for safe surgery. The left leg was prepped with Chloraprep. A shower curtain drape was placed. Using fluoroscopy, the proposed trajectory of the screws was marked on the skin. I then percutaneously placed the K wire guide from the 7.3 mm cannulated screw system through the skin and down to the lateral femur. This was just proximal to the lesser trochanter hugging the inferior, medial calcar, cortex of the femoral neck. A lateral was then used to confirm that this pin was also posterior displacement. Happy with starting point I then advanced the K wire into the femoral head. This was repeated for a posterior and superior guidepin. Likewise, a anterior and superior guidepin was also placed. X-ray was used to make sure that all pins were within the femoral neck but also having as much spread is possible through the femoral neck region and into the femoral head. Happy with their positioning, I cut down against the K wires down to the bone. The proximal portion of the screw path was drilled 1 screw at a time, starting with the posterior, inferior guidepin. This was measured, drilled, and then a screw placed. The screws were 7.3 mm cannulated partially-threaded screws. They were not finally tightened until all screws were placed. I then sequentially went through and repeated this process for the superior, posterior guidepin followed by the superior, anterior. Once all 3 screws are in I then sequentially went around tightening each one half a turn rotating through until there is no further advancement of the screws. Final x-rays were obtained which showed 3 screws transfixing the femoral neck fracture. Appear to be in good position without articular penetration and with good spread within the femoral neck. The wounds were thoroughly irrigated. A cocktail consisting of 20cc of 0.5% bupivacaine and 10cc of Exparel was injected throughout the wounds both deep and superficially. The wounds were closed with a 3-0 Monocryl in a subcuticular fashion followed by skin affix skin glue. The wounds were dressed with a Mepilex silver dressing. At the end of the case, all counts were correct. Sara tolerated the procedure well without known complication and was taken to the PACU for recovery. Physical therapy will start post-operatively, weigh-bearing as tolerated with assistive devices. Anticoagulation will start within 12-24 hours, aspirin 81 mg twice daily. 3 doses of post-operative antibitiocis for prophylaxis will be administered while an inpatient.
[2020-10-20] MEDS: Normal Saline 500 ML 30 ML IV (23:43)
[2020-10-20] MEDS: ceFAZolin 1 GM/50 ML BAG IVPB (23:44)
[2020-10-21 03:28] VITALS: BP 102/62; PULSE 61; RESP 17; TEMP 36.8; O2SAT 98
--- NOTE | 2020-10-21 07:18 | DSE_ITS ---
Date of service: 10/20/20 Time of Service: 15:18 DS: Diagnosis Discharge Diagnosis (1) Fracture of femoral neck, left, closed: Status: Acute Discharge Plan Disposition Patient Disposition: HOME Condition: Stable Discharge Details Reason For Visit: LEFT SUBCAPITAL FEMORAL NECK FRACTURE Admit Date/Time: 10/20/20 07:47 Admit Provider: Clive Maldonado Attending Provider: Clive Maldonado [facility] Hospital Course: Patient was admitted to the medical/surgical floor from the emergency department for a left femoral neck fracture suffered at work that morning of 10/20/20. She was then taken to surgery that afternoon for cannulated screw fixation. The surgery was tolerated well without any notable medical, surgical, or anesthetic complications. Mobilization began postoperatively. She was voiding spontaneously. Vitals were stable. No acute medical issues. Pain was controlled on oral regimen. Home Meds and New Rx's Prescriptions: New hydrocodone-acetaminophen 5-325 mg tablet 1 tab PO Q4H PRN (Reason: pain) Qty: 14 RF: 0 aspirin 81 mg tablet,delayed release (DR/EC) 81 mg PO BID Qty: 60 RF: 0 acetaminophen 500 mg tablet 500 mg PO Q6H PRN PRN (Reason: pain) Qty: 60 RF: 3 pantoprazole 40 mg tablet,delayed release (DR/EC) 40 mg PO DAILY Qty: 30 RF: 0 docusate sodium [Colace] 100 mg capsule 100 mg PO BID PRNQty: 10 RF: 0 ibuprofen 600 mg tablet 600 mg PO TID PRN (Reason: pain) Qty: 90 RF: 3 Continued hydrochlorothiazide 12.5 mg tablet 12.5 mg PO DAILY Qty: 90 RF: 4 rosuvastatin 5 mg tablet 5 mg PO DAILY Qty: 90 RF: 4 fluticasone propion-salmeterol [Advair Diskus] 250-50 mcg/dose blister with device 1 inh Inhalation DAILY Qty: 180 RF: 6 albuterol sulfate [Proventil HFA] 90 mcg/actuation HFA aerosol inhaler 2 puff Inhalation Q6H PRN (Reason: shortness of breath or wheezing) Qty: 18 RF: 6 Discharge Instructions Additional Instructions: Hip Fracture Discharge Instructions Activity: The most important activity is to move. You should try to take short walks a few times a day. You have no restrictions on movement or positioning, but do not try to force what you do. You will find some stiffness and weakness with hip flexion (lifting your knee). You will have difficulty with standing or walking for any prolonged period of time. Do not try to strengthen or improve this too early as we have to wait for the bone to heal. - Outpatient physical therapy can be helpful to help return you to a normal gait and improve your flexibility and strength. This can start around anytime after discharge. Please let our office know where you would like to go to therapy and we can help arrange that. - You should wear the [place] hose on both legs for 2 weeks. Dressing: Keep the surgical dressing (Mepilex) in place for at least one week. After the first week it may be removed and replace with bandaids. It may get wet after 3 days but avoid soaking the dressing, you can cover it with a cling wrap for the first week. If it gets wet, just lightly pat dry. Medications: - You should take Tylenol and an anti-inflammatory Ibuprofen as your primary pain control medications. - You have been prescribed a stronger pain medication Hydrocodone for breakthrough pain, take as needed as prescribed. - You have also been prescribed a stomach acid reduction agent Pantoprozole to help reduce stomach acid and reflux. - You will be taking Aspirin 81mg twice a day for DVT prevention unless instructed otherwise. - If you have constipation you should take Colace or Miralax (both over-the- counter). It takes most people 3-4 days to have a bowel movement. Follow-up: 2 weeks If you have any acute concerns or questions, please do not hesitate to contact the office at [phone]. You may contact Dr. Maldonado with any questions after hours through the hospital at [phone] or on his cell phone at [phone]. Referrals: Clive Maldonado MD [ [facility] STAFF PHYSICIAN] - Activity:: Activity as Tolerated Equipment/Supplies:: Crutches Diet:: As Tolerated Discharge Orders Discharge Orders: Discharge Order (Routine); Ordered 10/21/20 Ordered By: Clive Maldonado DS: Summary Time Spent with Patient providing and/or coordinating discharge services: Less than 30 minutes Status at Discharge Functional status at discharge: uses cane/walker Overall status at discharge: patient is progressing back to baseline Mental Status: mental status grossly normal Speech and Movement: speech and movement normal Mood: congruent mood Affect: normal affect Exam Psych Mental Status: mental status grossly normal Speech and Movement: speech and movement normal Mood: congruent mood Affect: normal affect DS: Data Vitals/I&O Vitals and I&O: Vital Signs Temperature 36.5 C 10/20/20 09:10 Temperature Source Skin 10/20/20 08:30 Pulse 69 10/20/20 09:10 Pulse Rhythm Regular 10/20/20 09:10 Respiratory Rate 17 10/20/20 09:10 Respiratory Effort Non-Labored 10/20/20 09:10 Respiratory Depth Normal 10/20/20 09:10 Respiratory Pattern Normal 10/20/20 09:10 Blood Pressure 147/81 H 10/20/20 09:10 Blood Pressure Position Sitting 10/20/20 06:08 Pulse Oximetry 96 10/20/20 09:10 Oxygen Delivery Method Room Air 10/20/20 09:10 Oxygen Flow Rate 0 10/20/20 09:10 Pain Level 6 10/20/20 11:07 Intake & Output 10/19/20 10/20/20 10/20/20 23:59 11:59 23:59 Output Total 300 / 300 Balance -300 / -300 Weight 58.967 kg Output: Urine 300 / 300 Data Completed and Pending Labs on day of discharge: Labs from last 24 hours 10/20/20 10/20/20 10/20/20 08:00 08:00 08:00 WBC 9.10 RBC 4.53 Hgb 13.7 Hct 41.3 MCV 91.2 MCH 30.2 MCHC 33.2 RDW 11.9 Plt Count 270 MPV 10.0 Immature Gran % 0.5 Neutrophils % 69.7 Lymphocytes % 20.5 Monocytes % 7.8 Eosinophils % 1.1 Basophils % 0.4 Nucleated RBC % 0 Absolute Neutrophils 6.33 Absolute Lymphocytes 1.87 Absolute Monocytes 0.71 Absolute Eosinophils 0.10 Absolute Basophils 0.04 PT 10.0 INR 1.0 APTT 21.7 Sodium 138 Potassium 3.6 Chloride 100 Carbon Dioxide 31.3 Anion Gap 6.7 BUN 24 H Creatinine 0.7 Estimated GFR/1.73 m2 >= 60.00 Glucose 103 Calcium 9.2 Total Bilirubin 0.5 AST 60 H ALT 84 H Alkaline Phosphatase 69 Total Protein 7.8 Albumin 4.0 COVID-19 Source SARS-CoV-2 (PCR) Influenza Type A (PCR) Influenza Type B (PCR) RSV (PCR) 10/20/20 07:40 WBC RBC Hgb Hct MCV MCH MCHC RDW Plt Count MPV Immature Gran % Neutrophils % Lymphocytes % Monocytes % Eosinophils % Basophils % Nucleated RBC % Absolute Neutrophils Absolute Lymphocytes Absolute Monocytes Absolute Eosinophils Absolute Basophils PT INR APTT Sodium Potassium Chloride Carbon Dioxide Anion Gap BUN Creatinine Estimated GFR/1.73 m2 Glucose Calcium Total Bilirubin AST ALT Alkaline Phosphatase Total Protein Albumin COVID-19 Source Nasopharynx SARS-CoV-2 (PCR) Negative Influenza Type A (PCR) Negative Influenza Type B (PCR) Negative RSV (PCR) Negative [facility] Medical History Colon cancer screening Essential hypertension Herpes simplex labialis Hyperlipidemia Mild persistent asthma Paroxysmal SVT (supraventricular tachycardia) F/U with PCP 04/2020 Raynaud phenomenon Syncopal episodes ECHO, head [facility] negative. Zio patch with 5 short bursts of SVT Surgical History History of section S/P tonsillectomy and adenoidectomy Status post bilateral breast reduction (~1980) Status post cervical polyp removal (~2015) Family History Mother Colon cancer Hypothyroidism Raynaud phenomenon Father , at 52 of bile duct cancer Essential hypertension Bile duct cancer Brother Essential hypertension Son No problems noted. Daughter No problems noted. Maternal Grandfather , at 75 Alzheimer's disease Heart disease Maternal Grandmother , at 82 of complications from hemochromatosis Hemochromatosis Paternal Grandfather , at 82 Lived in [facility] Heart disease Myocardial infarction Cancer Unknown type Paternal Grandmother , at 49 Lived in [facility] Throat cancer Lung cancer Social History Smoking/Tobacco Use Status: Never Smoking risk assessment performed?: Yes Alcohol Intake: current Alcohol Intake frequency: a few times a month Alcohol type: beer and wine Drug use: Never Substance use type: does not use Current gender identity: female Duration: 30-45 minutes/day Frequency: 3-4 times per week Karol/Mosque: Church Special karol needs: No Do you feel safe at home: Yes Do you feel safe in your relationship?: Yes Female Reproductive History Menstrual Menopause type: natural Date of menopause: 09/10/10 History History 2 Para Hx # Term Pregnancies Multiple births Hx # Pregnancies Ectopic pregnancies AB induced Hx Number of Living Children 1 AB spontaneous
[2020-10-21 07:35] VITALS: BP 112/75; PULSE 66; RESP 19; TEMP 36.9; O2SAT 96
[2020-10-21] MEDS: Acetaminophen 500 MG TAB 1000 MG PO (07:44)
[2020-10-21] MEDS: ceFAZolin 1 GM/50 ML BAG IVPB (07:44)
[2020-10-21] MEDS: Normal Saline Flush 10 ML SYR IVP (07:45)
--- NOTE | 2020-10-21 09:09 | PT.INTREAT ---
Date of service: 10/21/20 Time of Service: 08:40 PT Notes Visit Reasons: LEFT SUBCAPITAL FEMORAL NECK FRACTURE Inpatient Physical Therapy Treatment Note [facility] Date: 10/21/2020 PRECAUTIONS: Fall, WBAT L SUBJECTIVE: Sara is pleasant and agreeable to participating in PT. She reports that she has been completing her exercises independently. She reports that she is planning to return to work next week, and reports that she will have help with her workload. She asks about kneeling on the floor to re-grout her bathroom, then decides to put that project off temporarily, per therapist suggestion. OBJECTIVE: PAIN: No c/o pain BED MOBILITY/TRANSFERS Sit-stand: I Stand-sit: I Bed-Chair: I Chair-bed: I GAIT Assistive Device: FWW B Ax Cx Weight bearing: WBAT L Assist: I Distance: 75' with FWW 125' with B Ax Cx THEREX: Patient demonstrates independence with LE strengthening program. STAIRS: Up/down 3x4 and 2x6 using B Ax Cx and a step-to pattern, independently ASSESSMENT: Patient tolerated session without complaint of pain. She was able to tolerate a progression in gait distance with B axillary crutch support. She demonstrates independence with transfers, gait, and stairs at this time. PLAN: Patient to be discharged to home later today. TREATMENT CODE/TIME: 20 minutes; [id number]
--- NOTE | 2020-10-22 17:40 | INDS_ITS ---
Date of service: 10/22/20 PT Notes Visit Reasons: LEFT SUBCAPITAL FEMORAL NECK FRACTURE Physical Therapy Inpatient Discharge Summary Date: 10/22/2020 Dates of Service: 10/20/2020 and 10/21/2020 This is a clinical summary of care provided on the duration of dates listed abov marvin. No charge was made in the completion of this documentation. Referring Doctor: Clive Maldonado MD PT Orders: PT CONSULT: Status post Ortho surgery. Status post left hip fracture fixation. WBAT with assist Precautions: Fall. Standard. WBAT on L LE. Patient Profile/Admitting Diagnosis: Sara is a 60-year-old female with closed left femoral neck fracture sustained from a fall and is status post ORIF with cannulated screws on postoperative day 0. PMHX: Medical History Colon cancer screening Essential hypertension Herpes simplex labialis Hyperlipidemia Mild persistent asthma Paroxysmal SVT (supraventricular tachycardia) F/U with PCP 04/2020 Raynaud phenomenon Syncopal episodes ECHO, head [facility] at [facility]/[place] negative. Zio patch with 5 short bursts of SVT Surgical History History of section S/P tonsillectomy and adenoidectomy Status post bilateral breast reduction (~1980) Status post cervical polyp removal (~2015) Social History/Home Situation: Lives in a private home with 4 steps to enter without rails. 1 fall in the past 12 months. 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 Equipment Owned/DME: 2?3/10 in the left hip at rest, 7/10 pain in the left hip after ambulation activity. Subjective: NT. See most recent BALL THREAD MACHINE TENDER notes. Objective: General Observation: NT. See most recent BALL THREAD MACHINE TENDER notes. Mental Status:NT. See most recent BALL THREAD MACHINE TENDER notes. Pain: NT. See most recent BALL THREAD MACHINE TENDER notes. ROM: Right Upper Extremity: Shoulder Flexion WFL. Shoulder abduction WFL. Elbow flexion WFL. Wrist flexion WFL. Opening and closing of hand WFL. Left Upper Extremity: Shoulder Flexion WFL. Shoulder abduction WFL. Elbow flexion WFL. Wrist flexion WFL. Opening and closing of hand WFL. Right Lower Extremity: Hip flexion WFL. Hip abduction WFL. Knee flexion WFL. Ankle dorsiflexion WFL. Ankle plantarflexion WFL. Left Lower Extremity: Hip flexion WFL. Hip abduction WFL. Knee flexion WFL. Ankle dorsiflexion WFL. Ankle plantarflexion WFL. Strength: Right Upper Extremity: Shoulder flexors 5/5. Shoulder abductors 5/5. Elbow flexors 5/5. Elbow extensors 5/5. Bridge Inspector strong. Left Upper Extremity: Shoulder flexors 5/5. Shoulder abductors 5/5. Elbow flexors 5/5. Elbow extensors 5/5. Bridge Inspector strong. Right Lower Extremity: Hip flexors 5/5. Hip abductors 5/5. Knee flexors 5/5. Knee extensors 5/5. Ankle dorsiflexors 5/5. Ankle plantarflexors 5/5. Left Lower Extremity:Hip flexors 4/5. Hip abductors 4/5. Knee flexors 4/5. Knee extensors 4/5. Ankle dorsiflexors 5/5. Ankle plantarflexors 5/5. Sensation: Intact as to pain and pressure on bilateral lower extremities. Bed Mobility/Transfers: Rolling independent Supine to sit independent Sit to stand independent Stand to sit independent Bed to chair independent Chair to bed independent Gait: Patient ambulation of 125 feet using bilateral axillary crutches with WBAT on the left LE independently. Heel toe step to gait pattern with decreased gil. Denies dizziness, chest pain, and headache throughout activity. Balance: Static Sitting: Normal Dynamic Sitting: Normal Static Standing: Fair Dynamic Standing: Fair Assessment: Sara continues to require the use of a bilateral axillary crutches for all mobility ADL performance during initial evaluation due to pain level and safety concerns. Patient continues to present with clinical signs and symptoms consistent with current/admitting diagnoses that have resulted to mobility limitations, gait instability, generalized weakness, and impairment of motor control as demonstrated by the following impairment level findings: 1. Decreased strength to left hip major muscle groups 2. Impaired standing balance 3. Impaired activity tolerance 4. Pain in L hip Impairments are continuing to contributing to the following functional limitations: 1. Inability to safely ambulate without assistive device and physical assistance 2. Increase completion time for mobility ADL performance 3. Increased fall risk Goals: Goals X 1?2 more treatment sessions 1. Supine-Sit independent MET 2. Sit-Supine independent MET 3. Sit-Stand independent MET 4. Stand-Sit independent MET 5. Bed-Chair independent MET 6. Chair-Bed independent MET 7. Independent gait on level surface with use of bilateral axillary crutches for at least 300 feet without report of pain nor dyspnea MET 8. Independent stair negotiation with use of bilateral axillary crutches for at least 5 steps without report of pain nor dyspnea MET 9. Independent with home exercise program MET 10. Good static and dynamic standing balance/tolerance NOT MET DISCHARGE RECOMMENDATIONS: Home when medically cleared by orthopedic surgeon. Will need the use of front wheeled walker or bilateral axillary crutches to maximize independence at home. Outpatient physical therapy services in order to facilitate return to premorbid independent level and to vocational activities. TREATMENT CODE/TIME: CT Thank you for the opportunity to participate in the care of this patient. Cookie Newberry PT, DPT, CLT [facility] [place], [place]
== END 2020-10-21 10:16 | disposition home or self-care (01) | DRG 481 ==
LOC: ER 08:09 → MS 08:52
PROVIDERS: Admitting Provider Student in an Organized Health Care Education/Training Program; Emergency Provider Student in an Organized Health Care Education/Training Program; PCP Nurse Practitioner Family; Visit Provider Student in an Organized Health Care Education/Training Program
PROC: 0QS704Z Reposition Left Upper Femur with Internal Fixation Device, Open Approach (ICD-10-PCS; CPT 27236; principal; 2020-10-20 15:00)
DX: S72.012A Unspecified intracapsular fracture of left femur, initial encounter for closed fracture (principal); I47.1 Supraventricular tachycardia; W18.30XA Fall on same level, unspecified, initial encounter; Y99.0 Civilian activity done for income or pay; E78.5 Hyperlipidemia, unspecified; I10 Essential (primary) hypertension; I73.00 Raynaud's syndrome without gangrene; J45.30 Mild persistent asthma, uncomplicated
CPT/HCPCS: 27236; 36415; 80053; 93005; 97161; 97530; 99223; 99285; NC; 70450; 73501; 73502; 73700; 85025; 85610; 85730; 93010; J0690; J1100; J1885; J2250; J2405

== ENCOUNTER 2020-11-04 10:30 | Outpatient (CLI) | payer OTHER, SELFPAY ==
--- NOTE | 2020-11-04 08:15 | DI.RAD_ITS ---
EXAM: XR HIP LT AP LAT ONLY CLINICAL HISTORY: post op f/u. TECHNIQUE: 2D digital imaging was performed. COMPARISON: CR,XR XR HIP LT COMPLETE AP PELVIS from 10/20/2020 FINDINGS: There are now 3 screws in left femoral neck across the subcapital fracture site evident on the recent 10/20/2020 images. Alignment appears satisfactory. There is no narrowing of the hip joint space. A bony excrescence off the femoral head-neck junction is again noted. IMPRESSION: DATA REPOSITORY: RADIATION DOSE DELIVERED:
== END 2020-11-04 10:31 | disposition home or self-care (01) ==
LOC: DIORS 10:31
PROVIDERS: PCP Nurse Practitioner Family; Referring Provider Nurse Practitioner Family; Visit Provider Physician Assistant
DX: S72.045D Nondisplaced fracture of base of neck of left femur, subsequent encounter for closed fracture with routine healing (principal)
CPT/HCPCS: 73502

== ENCOUNTER 2020-12-02 09:18 | Outpatient (CLI) | payer OTHER, SELFPAY ==
--- NOTE | 2020-12-02 09:00 | DI.RAD_ITS ---
EXAM: XR HIP LT AP LAT ONLY CLINICAL HISTORY: POST OP. TECHNIQUE: 2D digital imaging was performed. COMPARISON: XR HIP LT IN OR from 10/20/2020 CR XR HIP LT AP LAT ONLY from 11/04/2020 FINDINGS: Position of the recently placed 3 femoral neck screws are unchanged across the subcapital fracture si te. The appearance of the healing fracture site is unchanged and there is no change in alignment. A gain noted is a bony excrescence off the femoral head-neck junction, unchanged. No radiographic evidence of hardware loosening. No radiographic evidence of osteomyelitis. IMPRESSION: DATA REPOSITORY: RADIATION DOSE DELIVERED:
== END 2020-12-02 09:19 | disposition home or self-care (01) ==
LOC: DIORS 09:18
PROVIDERS: PCP Nurse Practitioner Family; Referring Provider Nurse Practitioner Family; Visit Provider Student in an Organized Health Care Education/Training Program
DX: S72.012D Unspecified intracapsular fracture of left femur, subsequent encounter for closed fracture with routine healing (principal)
CPT/HCPCS: 73502

== ENCOUNTER 2020-12-30 11:05 | Outpatient (CLI) | payer OTHER, SELFPAY ==
--- NOTE | 2020-12-30 10:00 | DI.RAD_ITS ---
EXAM: XR HIP LT AP LAT ONLY CLINICAL HISTORY: F/U FRACTURE. TECHNIQUE: 2D digital imaging was performed. COMPARISON: CR XR HIP LT AP LAT ONLY from 12/02/2020 FINDINGS: Again noted are Street screws across what appears to be a healed subcapital femoral neck fracture sit e. Small bony excrescence off the femoral head-neck junction is less evident but this is probably du e to slight differences in technique. There is no radiographic evidence of migration of the screws a nd no radiographic evidence of osteomyelitis. IMPRESSION: DATA REPOSITORY: RADIATION DOSE DELIVERED:
== END 2020-12-30 11:06 | disposition home or self-care (01) ==
LOC: DIORS 11:05
PROVIDERS: PCP Nurse Practitioner Family; Referring Provider Nurse Practitioner Family; Visit Provider Student in an Organized Health Care Education/Training Program
DX: S72.045D Nondisplaced fracture of base of neck of left femur, subsequent encounter for closed fracture with routine healing (principal)
CPT/HCPCS: 73502

== ENCOUNTER 2021-01-27 09:35 | Outpatient (CLI) | payer OTHER, SELFPAY ==
--- NOTE | 2021-01-27 09:00 | DI.RAD_ITS ---
Exam(s) XR HIP LT AP LAT ONLY EXAM: XR HIP LT AP LAT ONLY CLINICAL HISTORY: f/u fracture. TECHNIQUE: 2D digital imaging was performed. COMPARISON: CR XR HIP LT AP LAT ONLY from 12/30/2020 FINDINGS: Again noted are 3 screws across femoral neck fracture site. There has been healing. No displacement . No screw loosening. No radiographic evidence of osteomyelitis. Hip joint space does not appear n arrowed. IMPRESSION: DATA REPOSITORY: RADIATION DOSE DELIVERED:
== END 2021-01-27 09:36 | disposition home or self-care (01) ==
LOC: DIORS 09:35
PROVIDERS: PCP Nurse Practitioner Family; Referring Provider Nurse Practitioner Family; Visit Provider Physician Assistant
DX: S72.045D Nondisplaced fracture of base of neck of left femur, subsequent encounter for closed fracture with routine healing (principal)
CPT/HCPCS: 73502

== ENCOUNTER 2021-04-28 17:30 | Outpatient (REF) | payer OTHER, SELFPAY ==
[2021-04-28 19:02] LABS: ALT 24 U/L (14-59); AST 19 U/L (15-37); Albumin 4.3 g/dL (3.4-5.0); Alkaline Phosphatase 64 U/L (46-116); BUN 17 mg/dL (7-18); Bilirubin, Total 0.5 mg/dL (0.2-1.0); CREATININE 0.7 mg/dL (0.55-1.02); Calcium 9.5 mg/dL (8.5-10.1); Calculated LDL 95 mg/dL (<100); Chloride 103 mmol/L (98-107); Cholesterol 197 mg/dL (<200); Ferritin 82 ng/mL (8-252); Glucose 90 mg/dL (74-106); HDL Cholesterol 92 mg/dL (40-60); Sodium 144 mmol/L (136-145); Total Protein 7.2 g/dL (6.4-8.2); Triglyceride 51 mg/dL (<150)
== END 2021-04-28 17:31 | disposition home or self-care (01) ==
LOC: LBN 17:30
PROVIDERS: PCP Nurse Practitioner Family; Visit Provider Nurse Practitioner Family
DX: R73.03 Prediabetes (principal); R79.89 Other specified abnormal findings of blood chemistry; Z83.49 Family history of other endocrine, nutritional and metabolic diseases
CPT/HCPCS: 80053; 80061; 82728; 83036

== ENCOUNTER 2022-11-10 13:34 | Outpatient (REF) | payer OTHER, SELFPAY ==
--- NOTE | 2022-11-10 13:00 | PAPFT_PTH ---
PATIENT: Sara Hicks LOC: [facility] U#:[id number] AGE/SX: 62/F ROOM: RE11/10/[address]: AILYN Soliman : 1960 BED: DIS: 11/10/2022 SPEC #: [id number] RECD: 11/13/22 13:12 STATUS: BRIAN REPhuong #: [id number] JORDY: 11/10/22 13:[address]: Dixie Smith DEPT: [facility] Cytology RECD BY: Brea Dahl Tissues: 1 - CX/ENDOCX FOR PAP SMEARS Procedures: PAP THIN PREP/UVM Screening HPV DNA PROBE Comments: [id number] (HPV 16 & 18/45) (CHLAMYDIA/GC)
[2022-11-14 14:28] LABS: Chlamydia Result Negative (Negative); GC Result Negative (Negative)
== END 2022-11-10 13:35 | disposition home or self-care (01) ==
LOC: LBN 13:34
PROVIDERS: PCP Nurse Practitioner Family; Visit Provider Nurse Practitioner Family
DX: Z11.3 Encounter for screening for infections with a predominantly sexual mode of transmission (principal); Z12.4 Encounter for screening for malignant neoplasm of cervix; Z11.51 Encounter for screening for human papillomavirus (HPV); R87.810 Cervical high risk human papillomavirus (HPV) DNA test positive
CPT/HCPCS: 87491; 87591; 88142; 87624

== ENCOUNTER 2022-11-13 10:00 | Outpatient (CLI) | payer OTHER, SELFPAY ==
[2022-11-13 12:43] LABS: ALT 27 U/L (14-59); AST 23 U/L (15-37); Albumin 4.1 g/dL (3.4-5.0); Alkaline Phosphatase 68 U/L (46-116); Anion Gap 8.4 mmol/L (3-11); BUN 22 mg/dL (7-18); Bilirubin, Total 0.5 mg/dL (0.2-1.0); CO2 31.6 mmol/L (21.0-32.0); CREATININE 0.7 mg/dL (0.55-1.02); Calcium 9.3 mg/dL (8.5-10.1); Chloride 102 mmol/L (98-107); Estimated GFR 98.34 (mL/min/1.73m2); Ferritin 76 ng/mL (8-252); Glucose 106 mg/dL (74-106); Potassium 3.5 mmol/L (3.5-5.1); Sodium 142 mmol/L (136-145); Total Protein 7.3 g/dL (6.4-8.2)
[2022-11-13 13:38] LABS: Hemoglobin A1C 5.8 % (<5.7)
== END 2022-11-13 10:01 | disposition home or self-care (01) ==
LOC: LOS 10:01
PROVIDERS: PCP Nurse Practitioner Family; Visit Provider Nurse Practitioner Family
DX: I10 Essential (primary) hypertension (principal); I47.1 Supraventricular tachycardia; R73.03 Prediabetes; E78.5 Hyperlipidemia, unspecified; Z83.49 Family history of other endocrine, nutritional and metabolic diseases
CPT/HCPCS: 36415; 80053; 82728; 83036

== ENCOUNTER 2024-02-18 20:17 | Outpatient (REF) | payer OTHER, SELFPAY ==
--- NOTE | 2024-02-18 13:00 | PAPFT_PTH ---
PATIENT: Sara Hicks LOC: [facility] U#:[id number] AGE/SX: 64/F ROOM: RE02/18/[address]: AILYN Soliman : 1960 BED: DIS: 02/18/2024 SPEC #: [id number] RECD: 02/19/24 12:40 STATUS: BRIAN REPhuong #: [id number] JORDY: 02/18/24 13:[address]: Dixie Smith DEPT: COUNTS INCLUDE 234 BEDS AT THE [facility] Cytology RECD BY: Brea Dahl Tissues: 1 - CX/ENDOCX FOR PAP SMEARS Procedures: PAP THIN PREP/UVM Screening HPV DNA PROBE Comments: [id number]
== END 2024-02-18 20:18 | disposition home or self-care (01) ==
LOC: LBN 20:17
PROVIDERS: PCP Nurse Practitioner Family; Visit Provider Nurse Practitioner Family
DX: Z11.51 Encounter for screening for human papillomavirus (HPV) (principal); Z01.419 Encounter for gynecological examination (general) (routine) without abnormal findings
CPT/HCPCS: 88142; 87624

== ENCOUNTER 2025-06-01 15:51 | Outpatient (REF) | payer OTHER, SELFPAY ==
--- NOTE | 2025-06-01 10:15 | PAPFT_PTH ---
PATIENT: Sara Hicks LOC: [facility] U#:[id number] AGE/SX: 65/F ROOM: RE06/01/[address]: AILYN Soliman : 1960 BED: DIS: 06/01/2025 SPEC #: [id number] RECD: 06/01/25 17:05 STATUS: BRIAN REPhuong #: [id number] JORDY: 06/01/25 10:[address]: Dixie Smith DEPT: [facility] Cytology RECD BY: Brea Dahl Tissues: 1 - CX/ENDOCX FOR PAP SMEARS Procedures: PAP THIN PREP/UVM Screening HPV DNA PROBE Comments: [id number] (HPV 16 & 18/45)
== END 2025-06-01 15:52 | disposition home or self-care (01) ==
LOC: LBN 15:51
PROVIDERS: PCP Nurse Practitioner Family; Visit Provider Nurse Practitioner Family
DX: Z12.4 Encounter for screening for malignant neoplasm of cervix (principal)
CPT/HCPCS: 88142; 87624